=== PATIENT | male | born 1955 | race Caucasian/White ===

== ENCOUNTER 2021-11-19 14:29 | Inpatient (IN) | payer MEDICARE, OTHER ==
[~2021-11-19] VITALS: Ht 167.6 cm; Wt 93.9 kg
[2021-11-19 16:34] VITALS: BP 144/69
[2021-11-19] MEDS ORDERED: REMEDY ESSENTIAL ZINC PASTE 113 GM TOP PRN (16:45)
[2021-11-19] MEDS ORDERED: DULO30CA2 PO (17:22)
[2021-11-19] MEDS ORDERED: FAMO20TA8 PO (17:22)
[2021-11-19] MEDS ORDERED: METH4TAB21 PO (17:22)
[2021-11-19] MEDS ORDERED: PANT40TA2 PO (17:22)
[2021-11-19] MEDS ORDERED: ROSU40TA PO (17:22)
[2021-11-19] MEDS ORDERED: MECL-159 PO (17:22)
[2021-11-19] MEDS ORDERED: POTA20TA11 PO (17:22)
[2021-11-19] MEDS ORDERED: APIX5TAB PO (17:22)
[2021-11-19] MEDS ORDERED: NITR0.4T SL (17:22)
[2021-11-19] MEDS ORDERED: EVOL140S2 SQ (17:22)
[2021-11-19] MEDS ORDERED: CARV25TA2 PO (17:22)
[2021-11-19] MEDS ORDERED: SACU1TAB PO (17:22)
[2021-11-19] MEDS ORDERED: ALBU0.63 IH (17:22)
[2021-11-19] MEDS ORDERED: DAPA10TA PO (17:22)
[2021-11-19] MEDS ORDERED: FURO40TA5 PO (17:22)
[2021-11-19] MEDS ORDERED: AMIO200T7 PO (17:22)
[2021-11-19] MEDS ORDERED: CLOP75TA15 PO (17:22)
[2021-11-19] MEDS ORDERED: TAMS-3 PO (17:22)
[2021-11-19] MEDS ORDERED: POLY17PO4 GT (17:22)
[2021-11-19] MEDS ORDERED: SPIR25TA PO (17:22)
[2021-11-19] MEDS ORDERED: CLOP75TA33 PO (17:22)
--- NOTE | 2021-11-19 18:02 | NUR ---
Received patient from paramedics in [facility]. Patient is AOx4. Patient breathing on room air saturating well with stable vitals overall. Patient in no pain. Patient admission process completed. Medications reconciled. Will endorse information to PM nurse.
--- NOTE | 2021-11-19 18:12 | NUR ---
Spoke to Dr. Torres regarding patients medication reconciliation. Informed that I would notify pharmacy to complete medication reconciliation. Spoke to Priscila from pharmacy regarding med recon. Will endorse information to PM nurse.
[2021-11-19] MEDS ORDERED: ALBU8.5H8 IH (18:14)
[2021-11-19] MEDS ORDERED: DULO60CA45 PO (18:15)
[2021-11-19 20:00] VITALS: BP 134/62
[2021-11-20 04:00] VITALS: BP 120/64
--- NOTE | 2021-11-20 04:32 | NUR ---
AAOx4 Admitted for acute CVA. All needs attended. VSS. No acute distress noted. Awaiting for MD to reconcile meds. Will monitor patient. Continent of bowel and bladder. Uses urinal when voiding. No BM noted this shift. Kept comfortable.
[2021-11-20 08:00] VITALS: BP 135/63
[2021-11-20] MEDS ORDERED: methylPREDNISolone 1 PACK TAB.DS.PK [4MG TAB] PO SCH (11:15)
[2021-11-20] MEDS ORDERED: [UNRECOGNIZED DRUG - OTHER] SQ SCH (11:15)
[2021-11-20] MEDS ORDERED: ALBUTEROL SULFATE 8 GM HFA.AER.AD IH PRN (11:15)
[2021-11-20] MEDS ORDERED: MECLIZINE HCL 25 MG TABLET PO PRN (11:15)
[2021-11-20] MEDS ORDERED: REPATHA 140 MG SQ SCH (11:15)
[2021-11-20] MEDS ORDERED: NITROGLYCERIN 0.4 MG/TAB BOTTLE SL PRN (11:15)
[2021-11-20] MEDS ORDERED: methylPREDNISolone 4 MG TABLET (DAY#1) PO ONE (11:30)
[2021-11-20] MEDS ORDERED: ALBUTEROL SULFATE 2.5 MG/3 ML NEBU NEB PRN (11:30)
[2021-11-20] MEDS: DULOXETINE 30 MG CAPSULE.DR PO SCH (11:52)
[2021-11-20] MEDS: SPIRONOLACTONE 25 MG TABLET PO SCH (11:52)
[2021-11-20] MEDS: AMIODARONE HCL 200 MG TABLET PO SCH (11:52)
[2021-11-20] MEDS: POTASSIUM CHLORIDE 20 MEQ TAB.PRT.SR PO SCH (11:53)
[2021-11-20] MEDS: FUROSEMIDE 40 MG TABLET PO SCH (11:53)
[2021-11-20] MEDS: CARVEDILOL 25 MG TABLET PO SCH ×2 (11:53→20:20)
[2021-11-20] MEDS: APIXABAN 5 MG TABLET PO SCH ×2 (11:56→20:15)
[2021-11-20] MEDS ORDERED: methylPREDNISolone 4 MG TABLET (DAY#1 PC LUNCH) PO ONE (12:30)
--- NOTE | 2021-11-20 13:00 | NUR ---
Received patient AAOx4. Dx for acute CVA. no residual noted able to ambulate to BR. Ambulated with PT All needs attended. No acute distress noted. MD reconciled Meds.Continent of bowel and bladder. Uses urinal when voiding. All do Meds given as ordered. no c/o of pain, Kept comfortable.
[2021-11-20 16:00] VITALS: BP 115/67
[2021-11-20] MEDS ORDERED: [UNRECOGNIZED DRUG - OTHER] PO SCH (17:00)
[2021-11-20] MEDS ORDERED: ENTRESTO PO SCH (17:00)
[2021-11-20] MEDS ORDERED: methylPREDNISolone 4 MG TABLET (DAY#1, PC DINNER) PO ONE (17:30)
[2021-11-20] MEDS ORDERED: CARVEDILOL 25 MG TABLET PO SCH (18:00)
[2021-11-20 20:00] VITALS: BP 102/59
[2021-11-20] MEDS: FAMOTIDINE 20 MG TABLET PO SCH (20:13)
[2021-11-20] MEDS: ATORVASTATIN 40 MG TABLET PO SCH (20:13)
[2021-11-20] MEDS: TAMSULOSIN HCL 0.4 MG CAP.SR.24H PO SCH (20:20)
[2021-11-20] MEDS ORDERED: ATORVASTATIN 40 MG TABLET PO SCH (21:00)
[2021-11-20] MEDS ORDERED: FAMOTIDINE 20 MG TABLET PO SCH (21:00)
[2021-11-20] MEDS ORDERED: methylPREDNISolone 4 MG TABLET (DAY#1, HS) PO ONE (21:00)
[2021-11-21 04:34] VITALS: BP 123/72
--- NOTE | 2021-11-21 04:51 | NUR ---
AAOx4 Ambulates to the BR. Continent of bowel and bladder. All needs attended. Tolerated po meds well. Denies any pain nor any discomfort. Will monitor patient. Kept comfortable.VSS.
[2021-11-21] MEDS: PANTOPRAZOLE SODIUM 40 MG TABLET.DR PO SCH (06:09)
[2021-11-21] MEDS ORDERED: methylPREDNISolone 4 MG TABLET (DAY#2, ACB) PO ONE (07:30)
[2021-11-21 07:58] VITALS: BP 136/77
[2021-11-21] MEDS: SPIRONOLACTONE 25 MG TABLET PO SCH (08:51)
[2021-11-21] MEDS: CARVEDILOL 25 MG TABLET PO SCH ×2 (08:51→17:22)
[2021-11-21] MEDS: DULOXETINE 30 MG CAPSULE.DR PO SCH (08:51)
[2021-11-21] MEDS: AMIODARONE HCL 200 MG TABLET PO SCH (08:51)
[2021-11-21] MEDS: FUROSEMIDE 40 MG TABLET PO SCH (08:52)
[2021-11-21] MEDS: POTASSIUM CHLORIDE 20 MEQ TAB.PRT.SR PO SCH (08:52)
[2021-11-21] MEDS: CLOPIDOGREL 75 MG TABLET PO SCH (08:52)
[2021-11-21] MEDS: APIXABAN 5 MG TABLET PO SCH ×2 (08:52→17:23)
[2021-11-21] MEDS ORDERED: FARXIGA 10 MG PO SCH (09:00)
[2021-11-21] MEDS ORDERED: [UNRECOGNIZED DRUG - OTHER] PO SCH (09:00)
[2021-11-21] MEDS ORDERED: MIRALAX 17 GM POWD.PACK GT SCH (09:00)
--- NOTE | 2021-11-21 10:57 | NUR ---
Received patient sitting at the edge of the bed AAOx4 Monegasque speaking, able to ambulate to BR,continent of bowel and bladder. Up Ambulated with PT All needs attended. No acute distress noted . All do Meds given as ordered compliant with care. no c/o of pain, Kept comfortable ,will continue to monitor for safety and comfort.
[2021-11-21] MEDS ORDERED: methylPREDNISolone 4 MG TABLET (DAY#2, PC LUNCH) PO ONE (12:30)
[2021-11-21 16:08] VITALS: BP 139/74
[2021-11-21] MEDS ORDERED: methylPREDNISolone 4 MG TABLET (DAY#2, PC DINNER) PO ONE (17:30)
[2021-11-21 20:08] VITALS: BP 135/67
[2021-11-21] MEDS: ATORVASTATIN 40 MG TABLET PO SCH (20:40)
[2021-11-21] MEDS: TAMSULOSIN HCL 0.4 MG CAP.SR.24H PO SCH (20:40)
[2021-11-21] MEDS: FAMOTIDINE 20 MG TABLET PO SCH (20:41)
[2021-11-21] MEDS ORDERED: methylPREDNISolone 4 MG TABLET (DAY#2, HS) PO ONE (21:00)
[2021-11-22 04:31] VITALS: BP 119/46
--- NOTE | 2021-11-22 04:56 | NUR ---
Patient slept well most the shift, no complaint of pain, no SOB respiration even and unlabored. Compliant with medications.frequent visuals checks done, continent of bowel and bladder able to ambulate to BR.safety measures in place, bed in low position, alarms ultrasound applications specialist light and all frequent items needed it within reached.
[2021-11-22] MEDS: PANTOPRAZOLE SODIUM 40 MG TABLET.DR PO SCH (06:20)
[2021-11-22] MEDS ORDERED: methylPREDNISolone 4 MG TABLET (DAY#3, ACB) PO ONE (07:30)
[2021-11-22 07:36] LABS: HEMATOCRIT 51.2 % (36.7-47.1); MEAN CORPUSCULAR HEMOGLOBIN 30.1 uug (23.8-33.4); MEAN CORPUSCULAR VOLUME 88.3 fL (73.0-96.2); PLATELET COUNT (AUTO) 215 K/uL (152-348)
[2021-11-22 07:41] LABS: CARBON DIOXIDE 28 mmol/L (21-32); CHLORIDE 101 mmol/L (98-107); CREATININE 1.3 mg/dL (0.6-1.3); GLUCOSE 152 mg/dL (74-106); POTASSIUM 4.2 mmol/L (3.5-5.1); UREA NITROGEN, BLOOD 30 mg/dL (7-18)
[2021-11-22 07:52] LABS: ALANINE AMINOTRANSFERASE 38 U/L (16-63); ALKALINE PHOSPHATASE 103 U/L (50-136); ASPARTATE AMINOTRANSFERASE < 5 U/L (15-37); BILIRUBIN,TOTAL 0.7 mg/dL (0.2-1.0)
[2021-11-22 07:53] LABS: TOTAL PROTEIN, SERUM 7.1 g/dL (6.4-8.2)
[2021-11-22 08:04] VITALS: BP 145/87
[2021-11-22] MEDS: SPIRONOLACTONE 25 MG TABLET PO SCH (08:28)
[2021-11-22] MEDS: DULOXETINE 30 MG CAPSULE.DR PO SCH (08:28)
[2021-11-22] MEDS: APIXABAN 5 MG TABLET PO SCH ×2 (08:28→16:27)
[2021-11-22] MEDS: MIRALAX 17 GM POWD.PACK PO SCH (08:28)
[2021-11-22] MEDS: FUROSEMIDE 40 MG TABLET PO SCH (08:28)
[2021-11-22] MEDS: POTASSIUM CHLORIDE 20 MEQ TAB.PRT.SR PO SCH (08:28)
[2021-11-22] MEDS: CARVEDILOL 25 MG TABLET PO SCH ×2 (08:28→17:04)
[2021-11-22] MEDS: CLOPIDOGREL 75 MG TABLET PO SCH (08:33)
[2021-11-22] MEDS: AMIODARONE HCL 200 MG TABLET PO SCH (08:33)
[2021-11-22] MEDS ORDERED: ASPIRIN 81 MG TAB.CHEW PO SCH (09:00)
--- NOTE | 2021-11-22 10:31 | NUR ---
INDIVIDUALIZED PLAN OF CARE
[2021-11-22] MEDS ORDERED: methylPREDNISolone 4 MG TABLET (DAY#3, PC LUNCH) PO ONE (12:30)
[2021-11-22 15:59] VITALS: BP 135/72
[2021-11-22] MEDS ORDERED: methylPREDNISolone 4 MG TABLET (DAY#3, PC DINNER) PO ONE (17:30)
[2021-11-22 19:08] LABS: *BILIRUBIN,URIN NEGATIVE (NEGATIVE); *BLOOD, URINE NEGATIVE (NEGATIVE); *CLARITY,URINE CLEAR (CLEAR); *COLOR,URINE YELLOW (YELLOW); *KETONES,URINE 1+ (NEGATIVE); *UROBILINOGEN,URINE 0.2 E.U./dl (NORMAL); LEUKOCYTE ESTERASE ,URINE NEGATIVE (NEGATIVE); NITRITE, URINE NEGATIVE (NEGATIVE); PH,URINE 5.5 (5.0-8.0); UGLUCOSE NEGATIVE (NEGATIVE)
[2021-11-22 20:08] VITALS: BP 130/67
[2021-11-22] MEDS: ATORVASTATIN 40 MG TABLET PO SCH (20:23)
[2021-11-22] MEDS: TAMSULOSIN HCL 0.4 MG CAP.SR.24H PO SCH (20:23)
[2021-11-22] MEDS: FAMOTIDINE 20 MG TABLET PO SCH (20:23)
[2021-11-22] MEDS ORDERED: methylPREDNISolone 4 MG TABLET (DAY#3, HS) PO ONE (21:00)
[2021-11-23 04:00] VITALS: BP_SYST 111; BP_SYST 99; BP_DIAS 52; BP_DIAS 77
[2021-11-23] MEDS ORDERED: ACETAMINOPHEN 325 MG TABLET PO PRN (04:45)
--- NOTE | 2021-11-23 04:55 | NUR ---
Complaint of left rib pain in scale of 5/10, Tylenol 650 mg oral given as ordered and needed. Will monitor.
[2021-11-23] MEDS: PANTOPRAZOLE SODIUM 40 MG TABLET.DR PO SCH (06:20)
[2021-11-23] MEDS ORDERED: methylPREDNISolone 4 MG TABLET (DAY#4, ACB) PO ONE (07:30)
[2021-11-23] MEDS: CARVEDILOL 25 MG TABLET PO SCH ×2 (08:07→17:07)
[2021-11-23] MEDS: CLOPIDOGREL 75 MG TABLET PO SCH (08:07)
[2021-11-23] MEDS: MIRALAX 17 GM POWD.PACK PO SCH ×2 (08:07→08:11)
[2021-11-23] MEDS: POTASSIUM CHLORIDE 20 MEQ TAB.PRT.SR PO SCH (08:08)
[2021-11-23] MEDS: SPIRONOLACTONE 25 MG TABLET PO SCH (08:08)
[2021-11-23] MEDS: FUROSEMIDE 40 MG TABLET PO SCH (08:08)
[2021-11-23] MEDS: AMIODARONE HCL 200 MG TABLET PO SCH (08:08)
[2021-11-23] MEDS: APIXABAN 5 MG TABLET PO SCH ×2 (08:08→16:43)
[2021-11-23] MEDS: DULOXETINE 30 MG CAPSULE.DR PO SCH (08:09)
[2021-11-23 08:47] VITALS: BP 142/84
[2021-11-23] MEDS ORDERED: methylPREDNISolone 4 MG TABLET (DAY#4, PC LUNCH) PO ONE (12:30)
[2021-11-23 16:35] VITALS: BP 122/58
[2021-11-23 20:00] VITALS: BP 118/70
[2021-11-23] MEDS ORDERED: methylPREDNISolone 4 MG TABLET (DAY#4, HS) PO ONE (21:00)
[2021-11-23] MEDS: ATORVASTATIN 40 MG TABLET PO SCH (21:09)
[2021-11-23] MEDS: FAMOTIDINE 20 MG TABLET PO SCH (21:09)
[2021-11-23] MEDS: TAMSULOSIN HCL 0.4 MG CAP.SR.24H PO SCH (21:09)
[2021-11-24 04:00] VITALS: BP 142/81
--- NOTE | 2021-11-24 05:30 | NUR ---
Pt slept intermittently through the night. Pt is able to walk to bathroom. Snacks and nourishment given as requested. No signs of acute distress. Denies pain and discomfort. Call lights and belongings within reach. Safety measures maintained.
[2021-11-24] MEDS: PANTOPRAZOLE SODIUM 40 MG TABLET.DR PO SCH (06:02)
[2021-11-24] MEDS ORDERED: methylPREDNISolone 4 MG TABLET (DAY#5, ACB) PO ONE (07:30)
[2021-11-24 08:00] VITALS: BP 127/80
[2021-11-24] MEDS: CLOPIDOGREL 75 MG TABLET PO SCH (08:18)
[2021-11-24] MEDS: POTASSIUM CHLORIDE 20 MEQ TAB.PRT.SR PO SCH (08:18)
[2021-11-24] MEDS: FUROSEMIDE 40 MG TABLET PO SCH (08:18)
[2021-11-24] MEDS: AMIODARONE HCL 200 MG TABLET PO SCH (08:19)
[2021-11-24] MEDS: CARVEDILOL 25 MG TABLET PO SCH ×2 (08:19→17:02)
[2021-11-24] MEDS: SPIRONOLACTONE 25 MG TABLET PO SCH (08:19)
[2021-11-24] MEDS: MIRALAX 17 GM POWD.PACK PO SCH (08:20)
[2021-11-24] MEDS: APIXABAN 5 MG TABLET PO SCH ×2 (08:20→16:49)
[2021-11-24] MEDS: DULOXETINE 60 MG CAPSULE.DR PO SCH (09:06)
[2021-11-24] MEDS: BENZOCAINE/MENTH/CETYLPYRD LOZENGE MM PRN ×2 (13:37→20:07)
[2021-11-24 16:48] VITALS: BP 135/78
[2021-11-24] MEDS: FAMOTIDINE 20 MG TABLET PO SCH (20:07)
[2021-11-24] MEDS: TAMSULOSIN HCL 0.4 MG CAP.SR.24H PO SCH (20:07)
[2021-11-24] MEDS: ATORVASTATIN 40 MG TABLET PO SCH (20:07)
[2021-11-24] MEDS: methylPREDNISolone 4 MG TABLET (DAY#5, HS) PO SCH (20:07)
[2021-11-24 20:21] VITALS: BP 116/71
[2021-11-24] MEDS ORDERED: methylPREDNISolone 4 MG TABLET (DAY#5, HS) PO ONE (21:00)
[2021-11-25 04:35] VITALS: BP 114/77
[2021-11-25] MEDS: PANTOPRAZOLE SODIUM 40 MG TABLET.DR PO SCH (06:07)
[2021-11-25] MEDS: methylPREDNISolone 4 MG TABLET (DAY#6, ACB) PO SCH (06:31)
[2021-11-25 07:30] VITALS: BP 120/73
[2021-11-25] MEDS ORDERED: methylPREDNISolone 4 MG TABLET (DAY#6, ACB) PO ONE (07:30)
[2021-11-25] MEDS: APIXABAN 5 MG TABLET PO SCH ×2 (09:12→17:27)
[2021-11-25] MEDS: CLOPIDOGREL 75 MG TABLET PO SCH (09:12)
[2021-11-25] MEDS: SPIRONOLACTONE 25 MG TABLET PO SCH (09:12)
[2021-11-25] MEDS: CARVEDILOL 25 MG TABLET PO SCH ×2 (09:12→17:31)
[2021-11-25] MEDS: POTASSIUM CHLORIDE 20 MEQ TAB.PRT.SR PO SCH (09:13)
[2021-11-25] MEDS: DULOXETINE 60 MG CAPSULE.DR PO SCH (09:13)
[2021-11-25] MEDS: FUROSEMIDE 40 MG TABLET PO SCH (09:13)
[2021-11-25] MEDS: AMIODARONE HCL 200 MG TABLET PO SCH (09:13)
[2021-11-25] MEDS: MIRALAX 17 GM POWD.PACK PO SCH (09:13)
[2021-11-25 16:00] VITALS: BP 124/74
[2021-11-25 20:00] VITALS: BP 138/72
[2021-11-25] MEDS: TAMSULOSIN HCL 0.4 MG CAP.SR.24H PO SCH (20:44)
[2021-11-25] MEDS: FAMOTIDINE 20 MG TABLET PO SCH (20:44)
[2021-11-25] MEDS: methylPREDNISolone 4 MG TABLET (DAY#5, HS) PO SCH (20:44)
[2021-11-25] MEDS: ATORVASTATIN 40 MG TABLET PO SCH (20:44)
[2021-11-26 04:00] VITALS: BP 124/72
[2021-11-26] MEDS: PANTOPRAZOLE SODIUM 40 MG TABLET.DR PO SCH (06:11)
[2021-11-26] MEDS: methylPREDNISolone 4 MG TABLET (DAY#6, ACB) PO SCH (06:14)
[2021-11-26 07:56] VITALS: BP 129/66
[2021-11-26] MEDS: DULOXETINE 60 MG CAPSULE.DR PO SCH (09:24)
[2021-11-26] MEDS: FUROSEMIDE 40 MG TABLET PO SCH (09:24)
[2021-11-26] MEDS: POTASSIUM CHLORIDE 20 MEQ TAB.PRT.SR PO SCH (09:24)
[2021-11-26] MEDS: SPIRONOLACTONE 25 MG TABLET PO SCH (09:24)
[2021-11-26] MEDS: CLOPIDOGREL 75 MG TABLET PO SCH (09:24)
[2021-11-26] MEDS: MIRALAX 17 GM POWD.PACK PO SCH (09:25)
[2021-11-26] MEDS: CARVEDILOL 25 MG TABLET PO SCH (09:30)
[2021-11-26] MEDS: AMIODARONE HCL 200 MG TABLET PO SCH (09:30)
[2021-11-26] MEDS: APIXABAN 5 MG TABLET PO SCH (09:32)
--- NOTE | 2021-11-26 10:02 | NUR ---
INTERDISCIPLINARY TEAM CONFERENCE
--- NOTE | 2021-11-26 13:02 | NUR ---
Patient seen by Dr. Aden MD ordered discharge to SNF. Order carried out, patient made aware and agreeable.
[2021-11-26 15:06] VITALS: BP 109/70
--- NOTE | 2021-11-26 15:31 | NUR ---
Discharge instructions provided to the patient with verbalized understanding. Discharge papers signed by and given to the patient. All belongings well accounted for. Patient remains alert, oriented x 4, not in any form of distress on room air. He denies any pain or discomfort. Vital signs stable. Report given to Nu BARRETT from [facility]. Patient picked up by [facility].
== END 2021-11-26 15:35 | DRG 57 ==
PROVIDERS: ADMIT Physical Medicine & Rehabilitation Pain Medicine; ATTEND Physical Medicine & Rehabilitation Pain Medicine
DX: I69.351 Hemiplegia and hemiparesis following cerebral infarction affecting right dominant side (principal); N40.0 Benign prostatic hyperplasia without lower urinary tract symptoms; I12.9 Hypertensive chronic kidney disease with stage 1 through stage 4 chronic kidney disease, or unspecified chronic kidney disease; E11.22 Type 2 diabetes mellitus with diabetic chronic kidney disease; I25.10 Atherosclerotic heart disease of native coronary artery without angina pectoris; N18.9 Chronic kidney disease, unspecified; I25.5 Ischemic cardiomyopathy; Z95.1 Presence of aortocoronary bypass graft; Z95.810 Presence of automatic (implantable) cardiac defibrillator
CPT/HCPCS: 36415; 70450; 85025; 97161; 97535-GO-CO; A4663; J7509